=== PATIENT | female | born 2005 | race Caucasian/White ===

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

== ENCOUNTER 2024-01-13 23:23 | Emergency (ER) | payer OTHER ==
[2024-01-14 00:43] LABS: Absolute Eosinophils 0.1 K/uL (0-0.5); Absolute Lymphocytes (CBC) 1.2 K/uL (0.7-4.9); Absolute Monocytes 0.7 K/uL (0.1-1.3); Absolute Neutrophil 8.1 K/uL (1.8-8.0); Basophils % 0.2 % (0-1.3); Eosinophils % 0.9 % (0-4.4); Hematocrit 39.2 % (36.0-45.0); Hemoglobin 12.4 g/dL (12.0-15.0); Lymphocytes % 11.7 % (15.3-44.8); MCH 24.7 pg (27.0-35.0); MCHC 31.6 g/dL (32.0-36.0); MCV 78.2 fL (80-100); MPV 8.7 fL (7.6-11.3); Monocytes % 7.3 % (3.3-12.3); Neutrophils % 79.9 % (41.7-73.7); Platelets 258 thou/uL (152-406); RBC Red Blood Cell Count 5.02 M/uL (3.86-4.86)
[2024-01-14] MEDS ORDERED: FAMOTIDINE 20 MG/2 ML VIAL IV ONE (00:52)
[2024-01-14] MEDS ORDERED: ONDANSETRON 4 MG/2 ML VIAL ONE ×2 (00:52→03:32)
[2024-01-14] MEDS ORDERED: KETOROLAC 30 MG/ML INJ ONE (00:52)
[2024-01-14] MEDS ORDERED: NA CHLORIDE 0.9% 1,000 ML ONE (00:53)
[2024-01-14 01:02] LABS: Albumin 4.3 g/dL (3.4-5.0); Anion Gap 10.5 mEq/L (5.0-15.0); Bilirubin Total 0.6 mg/dL (0.2-1.0); Globulin 4.3 g/dL (2.3-3.5); Potassium 3.5 mEq/L (3.5-5.1); Protein, Total 8.6 g/dL (6.4-8.2)
[2024-01-14 01:32] LABS: Renal Epithelial <5 /HPF (None Seen); Sqamous Epithelial <5 /HPF (None Seen); Urine Bacteria <20 /HPF (<20); Urine Bilirubin NEGATIVE (Negative); Urine Blood Negative (Negative); Urine Clarity Turbid (Clear); Urine Color Yellow (Yellow); Urine Culture Reflex Order REFLEXED; Urine Glucose NEGATIVE (Negative); Urine Ketones TRACE (Negative); Urine Microscopic Reflex YN ORDER UMIC; Urine Mucus 2+ /HPF (None Seen); Urine Nitrite NEGATIVE (Negative); Urine Protein TRACE (Negative); Urine RBC <5 /HPF (None Seen); Urine Urobilinogen Normal (Normal); Urine WBC 20-50 /HPF (<5); Urine WBC Clump Rare /HPF (None Seen); Urine pH 5.5 (5.0-7.0)
--- NOTE | 2024-01-14 03:49 | RAD REPORT ---
EXAMINATION: CT ABDOMEN PELVIS WITH IV CONTRAST INDICATION: Female, 18 years old, ABD PAIN COMPARISON(S): 12/19/2020 TECHNIQUE: CT acquisition of the abdomen and pelvis following the administration of IV contrast. Pérez nal and sagittal reformatted images provided. This exam was performed according to departmental dose-optimization program which includes automated exposure control, adjustment of the mA and/or kV a ccording to patient size, and/or use of iterative reconstruction technique. FINDINGS: SUPPORT DEVICES: None. LOWER CHEST: Unremarkable. ABDOMEN AND PELVIS: Lack of intraperitoneal fat limits assessment. Liver: Length measures 19 cm. No focal lesion. Gallbladder and bile ducts: Unremarkable. Pancreas: Normal. Spleen: Mildly enlarged. Adrenal glands: Normal. Kidneys and ureters: Normal kidneys in visualized portions of the ureters. Bladder: Nondistended without evident abnormality. Reproductive organs: Unremarkable. GI tract: Normal caliber without wall thickening. No evidence of appendicitis. Liquid contents throug hout nearly all small bowel loops, and the large bowel from the cecum to the splenic flexure. Vessels: Unremarkable. Lymph nodes: No obvious adenopathy. Peritoneum: No evidence of ascites, fluid collection, or free air. Abdominal wall: No significant hernia. MUSCULOSKELETAL: No acute osseous abnormality. IMPRESSION: 1. CT appearance of large and small bowel loops can be seen in the setting of enteritis/enterocolit is. 2. Mild hepatosplenomegaly. Electronically signed by: Lionel Galvan MD 01/14/2024 03:45 AM CDT RP Due to temporary technical issues with the PACS/[employer]) reporting system, reports are being malika d by the in-house radiologist without review as a courtesy to ensure prompt reporting the interpreting radiologist is fully responsible for the content of the report. Transcribed Date/Time: 01/14/2024 3:49 AM
--- NOTE | 2024-01-14 03:54 | EDPHYS ---
Physician Documentation [facility] Name: Radha Bergman Age: 18 yrs Sex: Female : 2005 Arrival Date: 01/13/2024 Time: 23:23 Bed 17 Private MD: ED Physician Hari Cote HPI: 01/13 00:14 This 18 yrs old Female presents to ER via Unassigned with complaints of Abdominal Pain, sb4 Nausea, Epigastric Pain. 00:14 The patient presents with abdominal pain in the epigastric area. Onset: The sb4 symptoms/episode began/occurred 3 day(s) ago. The symptoms radiate to chest. Associated signs and symptoms: Pertinent positives: nausea. The symptoms are described as sharp, throbbing. Modifying factors: The symptoms are alleviated by nothing, the symptoms are aggravated by nothing. Severity of pain: in the emergency department the pain is a 8 / 10. The patient has not experienced similar symptoms in the past. The patient has not recently seen a physician. 01:52 nausea and diffuse abdominal pain that radiates up to chest for 2 days now since her sb4 boyfriend injured himself. no vomiting, no diarrhea, no fevers. 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 - Infectious Disease History:: Denies. - Social history:: Smoking status: Reported history of juuling and/or vaping. ROS: 00:14 Constitutional: Negative for fever, chills, and weight loss, sb4 00:14 Abdomen/GI: Positive for abdominal pain, nausea, 00:14 All other systems are negative, Exam: 00:14 Constitutional: This is a well developed, well nourished patient who is awake, alert, sb4 and in no acute distress. Head/Face: Normocephalic, atraumatic. Eyes: Extra-ocular motions intact. Periorbital areas with no swelling, redness, or edema. ENT: Mucous membranes moist. Cardiovascular: Regular rate and rhythm with a normal S1 and S2. Respiratory: Lungs have equal breath sounds bilaterally, clear to auscultation and percussion. No rales, rhonchi or wheezes noted. No increased work of breathing, no retractions or nasal flaring. Abdomen/GI: Soft, non-tender, no distension. Skin: Warm, dry with normal turgor. Normal color with no rashes, no lesions, and no evidence of cellulitis. MS/ Extremity: Pulses equal, no cyanosis. Neurovascular intact. Full, normal range of motion. Vital Signs: 00:07 BP 118 / 82; Pulse 105; Resp 16; Temp 98.2; Pulse Ox 100% on R/A; Weight 54.43 kg; vc1 Height 5 ft. 4 in. ; Pain 9/10; 01:30 BP 118 / 75; Pulse 88; Resp 16; Pulse Ox 100% ; Pain 3/10; dd2 02:21 BP 108 / 68; Pulse 78; Resp 15; Pulse Ox 99% ; dd2 04:14 BP 110 / 71; Pulse 81; Resp 15; Temp 98.2; Pulse Ox 97% ; dd2 00:07 Body Mass Index 20.60 (54.43 kg, 162.56 cm) vc1 00:07 Pain Scale: Adult vc1 01:30 Pain Scale: Adult dd2 [place] Coma Score: 00:55 Eye Response: spontaneous(4). Motor Response: obeys commands(6). Verbal Response: dd2 oriented(5). Total: 15. MDM: 01/12 23:28 Medical Screening Exam initiated sb4 01/13 01:41 Data reviewed: vital signs, nurses notes, lab test result(s), radiologic studies, and sb4 as a result, I will discharge patient. Counseling: I had a detailed discussion with the patient and/or guardian regarding the historical points, exam findings, and any diagnostic results supporting the discharge/admit diagnosis, lab results, radiology results, the need for outpatient follow up, for definitive care, to return to the emergency department if symptoms worsen or persist or if there are any questions or concerns that arise at home. 01/13 00:14 Order name: CBC with Diff; Complete Time: 00:54 sb4 01/13 00:14 Order name: CMP; Complete Time: 01:04 sb4 01/13 00:14 Order name: Lipase; Complete Time: 01:04 sb4 01/13 00:14 Order name: Test, Urine; Complete Time: 01:39 sb4 01/13 00:14 Order name: Urinalysis w/ reflexes; Complete Time: 01:39 sb4 01/13 01:35 Order name: Urine Culture EDWV 01/13 00:14 Order name: CT Abd/Pelvis - IV Contrast Only; Complete Time: 03:52 sb4 01/13 00:14 Order name: IV Saline Lock; Complete Time: 01:00 sb4 01/13 00:14 Order name: Labs collected and sent; Complete Time: 01:00 sb4 Administered Medications: 01:00 Drug: Famotidine IVP 20 mg IVP once; dilute with 10 mL 0.9% NaCl; give over 2 minutes dd2 Route: IVP; Site: left antecubital; 01:15 Follow up: Response: No adverse reaction dd2 01:15 Follow up: Response: No adverse reaction dd2 01:00 Drug: NS 0.9% IV 1000 ml IV at 1 bolus Per protocol; to be given as a bolus over 60 dd2 minutes Route: IV; Rate: 1 bolus; Site: left antecubital; 02:00 Follow up: Response: No adverse reaction; IV Status: Completed infusion; IV Intake: dd2 1000ml 01:01 Drug: TORadol - Ketorolac IVP 15 mg IVP once Route: IVP; Site: left antecubital; dd2 01:16 Follow up: Response: No adverse reaction dd2 01:01 Drug: Ondansetron IVP 4 mg IVP once; over 2 minutes Route: IVP; Site: left antecubital; dd2 01:16 Follow up: Response: No adverse reaction dd2 03:37 Drug: Ondansetron IVP 4 mg IVP once; over 2 minutes Route: IVP; Site: left antecubital; dd2 03:52 Follow up: Response: No adverse reaction dd2 04:33 Drug: Ciprofloxacin PO 250 mg PO once Route: PO; dd2 04:38 Follow up: Response: Medication administered at discharge. dd2 Disposition Summary: 01/14/24 03:53 Discharge Ordered Notes: Location: Home valerie Problem: new valerie Symptoms: have improved valerie Condition: Stable valerie Diagnosis - Upper abdominal pain, unspecified valerie - Nausea valerie - Other specified noninfective gastroenteritis and colitis valerie Followup: sb4 - With: Delta Doe DO - When: As needed - Reason: Recheck today's complaints, Re-evaluation by your physician Discharge Instructions: - Viral Gastroenteritis, Adult valerie - Discharge Summary Sheet sb4 - Abdominal Pain, Adult sb4 - Nausea, Adult sb4 - Urinary Tract Infection, Adult, [id number] sb4 Forms: - Medication Reconciliation Form valerie - Antibiotic Education valerie - Prescription Opioid Use valerie - Patient Portal Instructions [facility] - Leadership Thank You Letter [facility] Prescriptions: - Cipro 250 mg Oral tablet - take 1 tablet ORAL route every 12 hours; 14 tablet; Refills: 0, Product [facility] Selection Permitted - Pepcid 20 mg Oral Tablet - take 1 tablet ORAL route every 12 hours for 10 days; 20 tablet; Refills: 0, [facility] Product Selection Permitted - Zofran 4 mg Oral Tablet - take 1 tablet ORAL route every 12 hours As needed; 20 tablet; Refills: 0, sb4 Product Selection Permitted - dicyclomine 20 mg Oral tablet - take 1 tablet ORAL route every 6 hours As needed PRN abdominal pain; 20 tablet; sb4 Refills: 0, Product Selection Permitted Signatures: Dispatcher [employer] EDHari Arnold MD MD cha Calcote, Vanessa, RN RN vc1 Anisha Salcedo PAWilbertC PAWilbertC sb4 ROSA PUTNAM RN RN dd2 Corrections: (The following items were deleted from the chart) 00:14 00:14 CBC+H.LAB.BRZ ordered. EDMS EDMS 00:14 00:14 COMPREHENSIVE METABOLIC PANEL+C.LAB.BRZ ordered. EDMS EDMS 00:14 00:14 LIPASE+C.LAB.BRZ ordered. EDMS EDMS 00:14 00:14 Test, Urine+UC.LAB.BRZ ordered. EDMS EDMS 00:14 00:14 Urinalysis+U.LAB.BRZ ordered. EDMS EDMS 00:14 00:14 Abdomen Pelvis W Con+CT.RAD.BRZ ordered. EDMS EDMS
--- NOTE | 2024-01-14 03:54 | ER ---
Nurse's Notes [facility] Name: Radha Bergman Age: 18 yrs Sex: Female : 2005 Arrival Date: 01/13/2024 Time: 23:23 Bed 17 Private MD: Diagnosis: Upper abdominal pain, unspecified;Nausea;Other specified noninfective gastroenteritis and colitis Presentation: 01/13 00:07 Chief complaint: Patient states: abdominal pain and nausea. vc1 00:07 Coronavirus screen: Client denies travel out of the [place] in the last 14 days. At this vc1 time, the client does not indicate any symptoms associated with coronavirus-19. Ebola Screen: Patient negative for fever greater than or equal to 101.5 degrees Fahrenheit, and additional compatible Ebola Virus Disease symptoms Patient denies exposure to infectious person. Patient denies travel to an Ebola-affected area in the 21 days before illness onset. No symptoms or risks identified at this time. Initial Sepsis Screen: Does the patient meet any 2 criteria? No. Patient's initial sepsis screen is negative. Does the patient have a suspected source of infection? No. Patient's initial sepsis screen is negative. Risk Assessment: Do you want to hurt yourself or someone else? Patient reports no desire to harm self or others. Onset of symptoms was January 14, 2024. 00:07 Method Of Arrival: Ambulatory vc1 00:07 Acuity: ANIL 3 vc1 Triage Assessment: 01:11 General: Appears in no apparent distress. uncomfortable, well groomed, well developed, vc1 Behavior is cooperative, anxious. Pain: Complains of pain in abdomen. Pain: Pain currently is 9 out of 10 on a pain scale. Also complains of nausea. EENT: No deficits noted. No signs and/or symptoms were reported regarding the EENT system. Neuro: Level of Consciousness is awake, alert, obeys commands, Oriented to person, place, time, situation, Appropriate for age. Cardiovascular: Capillary refill < 3 seconds Patient's skin is warm and dry. Respiratory: Airway is patent Respiratory effort is even, unlabored, Respiratory pattern is regular, symmetrical. GI: Abdomen is flat, Reports nausea, Patient currently denies vomiting. : No deficits noted. No signs and/or symptoms were reported regarding the genitourinary system. Derm: Skin is intact, is healthy with good turgor, Skin is dry, Skin is normal, Skin temperature is warm. Musculoskeletal: Circulation, motion, and sensation intact. Range of motion: intact in all extremities. 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 - Infectious Disease History:: Denies. - Social history:: Smoking status: Reported history of juuling and/or vaping. Screenin:07 [facility] ED Fall Risk Assessment (Adult) History of falling in the last 3 months, vc1 including since admission No falls in past 3 months (0 pts) Confusion or Disorientation No (0 pts) Intoxicated or Sedated No (0 pts) Impaired Gait No (0 pts) Mobility Assist Device Used No (0 pt) Altered Elimination No (0 pt) Score/Fall Risk Level 0 - 2 = Low Risk Oriented to surroundings, Maintained a safe environment, Educated pt \T\ family on fall prevention, incl call for assistance when getting out of bed. Abuse screen: Denies threats or abuse. Nutritional screening: No deficits noted. Tuberculosis screening: No symptoms or risk factors identified. Assessment: 00:55 General: Appears in no apparent distress. Behavior is calm, cooperative, appropriate dd2 for age. Pain: Complains of pain in right upper quadrant and left upper quadrant Pain currently is 7 out of 10 on a pain scale. Neuro: Level of Consciousness is awake, alert, obeys commands, Oriented to person, place, time, situation, Appropriate for age. Cardiovascular: No deficits noted. Reports. Respiratory: No deficits noted. Airway is patent Respiratory effort is even, unlabored, Respiratory pattern is regular, symmetrical. GI: Abdomen is flat, non-distended, Bowel sounds present X 4 quads. Abdomen is tender to palpation in right upper quadrant and left upper quadrant. : No signs and/or symptoms were reported regarding the genitourinary system. EENT: No deficits noted. No signs and/or symptoms were reported regarding the EENT system. Derm: No deficits noted. No signs and/or symptoms reported regarding the dermatologic system. Musculoskeletal: No deficits noted. No signs and/or symptoms reported regarding the musculoskeletal system. Vital Signs: 00:07 BP 118 / 82; Pulse 105; Resp 16; Temp 98.2; Pulse Ox 100% on R/A; Weight 54.43 kg; vc1 Height 5 ft. 4 in. ; Pain 9/10; 01:30 BP 118 / 75; Pulse 88; Resp 16; Pulse Ox 100% ; Pain 3/10; dd2 02:21 BP 108 / 68; Pulse 78; Resp 15; Pulse Ox 99% ; dd2 04:14 BP 110 / 71; Pulse 81; Resp 15; Temp 98.2; Pulse Ox 97% ; dd2 00:07 Body Mass Index 20.60 (54.43 kg, 162.56 cm) vc1 00:07 Pain Scale: Adult vc1 01:30 Pain Scale: Adult dd2 [place] Coma Score: 00:55 Eye Response: spontaneous(4). Motor Response: obeys commands(6). Verbal Response: dd2 oriented(5). Total: 15. ED Course: 01/12 23:26 Patient arrived in ED. jj6 23:26 Anisha Salcedo PA-C is PHCP. sb4 23:26 Hari Cote MD is Attending Physician. sb4 01/13 00:32 ROSA PUTNAM, FELISHA is Primary Nurse. dd2 00:43 Missed attempt(s): 22 gauge in right antecubital area. vk 00:43 Initial lab(s) drawn, by me, sent to lab. vk 00:43 CBC with Diff Sent. vk 00:43 CMP Sent. vk 00:48 No provider procedures requiring assistance completed. Inserted saline lock: 22 gauge dd2 in left antecubital area, using aseptic technique. Flushed with 10 mL NS. 00:55 Provided Education on: medications, labs, call light. Door closed. Noise minimized. dd2 Warm blanket given. Verbal reassurance given. 01:08 Triage completed. vc1 01:13 Arm band placed on. vc1 01:13 Patient has correct armband on for positive identification. Bed in low position. Call vc1 light in reach. Pulse ox on. NIBP on. 02:07 CT Abd/Pelvis - IV Contrast Only In Process Unspecified. EDMS 03:53 Delta Doe, DO is Referral Physician. valerie 04:38 IV discontinued, intact, bleeding controlled, No redness/swelling at site. Pressure dd2 dressing applied. Administered Medications: 01:00 Drug: Famotidine IVP 20 mg IVP once; dilute with 10 mL 0.9% NaCl; give over 2 minutes dd2 Route: IVP; Site: left antecubital; 01:15 Follow up: Response: No adverse reaction dd2 01:15 Follow up: Response: No adverse reaction dd2 01:00 Drug: NS 0.9% IV 1000 ml IV at 1 bolus Per protocol; to be given as a bolus over 60 dd2 minutes Route: IV; Rate: 1 bolus; Site: left antecubital; 02:00 Follow up: Response: No adverse reaction; IV Status: Completed infusion; IV Intake: dd2 1000ml 01:01 Drug: TORadol - Ketorolac IVP 15 mg IVP once Route: IVP; Site: left antecubital; dd2 01:16 Follow up: Response: No adverse reaction dd2 01:01 Drug: Ondansetron IVP 4 mg IVP once; over 2 minutes Route: IVP; Site: left antecubital; dd2 01:16 Follow up: Response: No adverse reaction dd2 03:37 Drug: Ondansetron IVP 4 mg IVP once; over 2 minutes Route: IVP; Site: left antecubital; dd2 03:52 Follow up: Response: No adverse reaction dd2 04:33 Drug: Ciprofloxacin PO 250 mg PO once Route: PO; dd2 04:38 Follow up: Response: Medication administered at discharge. dd2 Medication: 01:14 VIS not applicable for this client. vc1 Intake: 02:00 IV: 1000ml; Total: 1000ml. dd2 Outcome: 03:53 Discharge ordered by . valerie 04:38 Discharged to home ambulatory, dd2 04:38 Condition: stable 04:38 Discharge instructions given to patient, Instructed on discharge instructions, follow up and referral plans. medication usage, Demonstrated understanding of instructions, follow-up care, medications, Prescriptions given X 4, 04:39 Patient left the ED. dd2 Signatures: Dispatcher [employer] EDSD Hari Cote MD MD cha Jeffries, Jennifer jj6 Chandni Johnson RN RN vc1 Anisha Salcedo PA-C PA-C sb4 Poly Nice DIANA, RN RN dd2
[2024-01-14] MEDS ORDERED: CIPROFLOXACIN HCL 500 MG TAB ONE (04:23)
[2024-01-14 08:55] VITALS: TEMP 98.2
[2024-01-14 09:08] VITALS: BP 110/71; O2SAT 97
== END 2024-01-14 04:39 | disposition home or self-care (01) ==
LOC: ER 23:23
DX: K52.89 Other specified noninfective gastroenteritis and colitis (principal); R11.0 Nausea
CPT/HCPCS: 87088; 85025; 81001; 87086; 36415; 81025; 83690; 80053; 74177; Q9967; J2405 ×2; J7030; 87077; 87186; 96361; 96374; 96375; 99284

== ENCOUNTER 2024-07-26 13:48 | Emergency (ER) | payer OTHER, SELFPAY ==
[2024-07-26] MEDS ORDERED: NA CHLORIDE 0.9% 1,000 ML ONE (15:27)
[2024-07-26] MEDS ORDERED: ONDANSETRON 4 MG/2 ML VIAL ONE (15:27)
[2024-07-26 15:47] LABS: Absolute Lymphocytes (CBC) 1.9 K/uL (0.7-4.9); Absolute Monocytes 0.5 K/uL (0.1-1.3); Absolute Neutrophil 4.1 K/uL (1.8-8.0); Basophils % 0.6 % (0-1.3); Eosinophils % 0.6 % (0-4.4); Hemoglobin 11.2 g/dL (12.0-15.0); Lymphocytes % 28.6 % (15.3-44.8); MCH 25.5 pg (27.0-35.0); MCHC 32.9 g/dL (32.0-36.0); MCV 77.4 fL (80-100); MPV 8.1 fL (7.6-11.3); Neutrophils % 62.2 % (41.7-73.7); Nucleated Red Blood Cells % 0.1 % (0-0); Platelets 241 thou/uL (152-406); RBC Red Blood Cell Count 4.39 M/uL (3.86-4.86); Red Cell Distribution Width 16.5 % (12.1-15.2)
[2024-07-26 16:09] LABS: Albumin 3.9 g/dL (3.4-5.0); Anion Gap 7.7 mEq/L (5.0-15.0); Bilirubin Total 0.4 mg/dL (0.2-1.0); Globulin 3.8 g/dL (2.3-3.5); Potassium 3.7 mEq/L (3.5-5.1); Protein, Total 7.7 g/dL (6.4-8.2)
[2024-07-26 16:36] LABS: Specific Gravity 1.019 (1.005-1.030)
[2024-07-26 16:37] LABS: Specific Gravity 1.019 (1.005-1.030); Urine Bilirubin NEGATIVE (Negative); Urine Blood Negative (Negative); Urine Clarity Clear (Clear); Urine Color Light-Yellow (Yellow); Urine Glucose NEGATIVE (Negative); Urine Ketones NEGATIVE (Negative); Urine Microscopic Reflex YN NO UMIC; Urine Nitrite NEGATIVE (Negative); Urine Protein NEGATIVE (Negative); Urine Urobilinogen Normal (Normal)
--- NOTE | 2024-07-26 17:19 | EDPHYS ---
Physician Documentation [facility] Name: Radha Bergman Age: 18 yrs Sex: Female : 2005 Arrival Date: 07/26/2024 Time: 13:48 Bed DX1 Private MD: ED Physician Hari Cote HPI: 07/26 15:02 This 18 yrs old Female presents to ER via Ambulatory with complaints of Weakness, kb Possible Dehydration. 15:02 Patient is a 18-year-old female who presents for dehydration. States that she was at [employer] work yesterday and they sent her home for dizziness and told her she was dehydrated. Patient reports nausea and diarrhea for 2 days with vomiting yesterday only. Denies dizziness at this time. Denies abdominal pain. Denies fever. 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 - Infectious Disease History:: Denies. - Social history:: Smoking status: Reported history of juuling and/or vaping. ROS: 15:02 Constitutional: As per HPI kb Exam: 15:03 Constitutional: This is a well developed, well nourished patient who is awake, alert, kb and in no acute distress. Head/Face: Normocephalic, atraumatic. ENT: Moist Mucous membranes Respiratory: Respirations even and unlabored. No increased work of breathing. Talking in full sentences Abdomen/GI: Soft, non-tender. No distention Skin: Warm, dry with normal turgor. Normal color. MS/ Extremity: Pulses equal, no cyanosis. Neurovascular intact. Full, normal range of motion. Neuro: Awake and alert, GCS 15, oriented to person, place, time, and situation. 15:03 Cardiovascular: Rate: tachycardic, Vital Signs: 14:16 BP 122 / 85; Pulse 104; Resp 18; Temp 98.4; Pulse Ox 96% ; Weight 58.97 kg; Height 5 me1 ft. 4 in. ; Pain 0/10; 14:16 Body Mass Index 22.31 (58.97 kg, 162.56 cm) me1 14:16 Pain Scale: Adult me1 MDM: 13:53 Medical Screening Exam initiated kb 15:03 Data reviewed: vital signs, nurses notes. kb 17:17 Test considered but Not performed: CT: ct abd considered but pt has no abd pain or kb tenderness. Counseling: I had a detailed discussion with the patient and/or guardian regarding the historical points, exam findings, and any diagnostic results supporting the discharge/admit diagnosis, lab results, the need for outpatient follow up, a family practitioner, to return to the emergency department if symptoms worsen or persist or if there are any questions or concerns that arise at home. 07/26 14:17 Order name: CBC with Diff; Complete Time: 15:52 kb 07/26 14:17 Order name: CMP; Complete Time: 16:11 kb 07/26 14:17 Order name: Lipase; Complete Time: 16:11 kb 07/26 14:17 Order name: Test, Urine; Complete Time: 16:39 kb 07/26 14:17 Order name: Urinalysis w/ reflexes; Complete Time: 16:38 kb 07/26 14:17 Order name: CPK; Complete Time: 16:11 kb 07/26 14:17 Order name: IV Saline Lock; Complete Time: 15:40 kb 07/26 14:17 Order name: Labs collected and sent; Complete Time: 15:40 kb Administered Medications: 15:42 Drug: Ondansetron IVP 4 mg IVP once; over 2 minutes Route: IVP; Site: right antecubital;ld1 17:37 Follow up: Response: No adverse reaction; Nausea is decreased ss 15:42 Drug: NS 0.9% IV 1000 ml IV at 1 bolus Per protocol; to be given as a bolus over 60 ld1 minutes Route: IV; Rate: 1 bolus; Site: right antecubital; 17:37 Follow up: IV Intake: 1000ml ss 17:37 Follow up: IV Status: Completed infusion ss Disposition Summary: 07/26/24 17:18 Discharge Ordered Notes: Location: Home kb Condition: Stable kb Diagnosis - Diarrhea, unspecified kb - Nausea with vomiting, unspecified kb Followup: kb - With: Emergency Department - When: As needed - Reason: Worsening of condition Followup: kb - With: Private Physician - When: 2 - 3 days - Reason: Recheck today's complaints, Continuance of care, Re-evaluation by your physician Discharge Instructions: - Discharge Summary Sheet kb - Nausea and Vomiting, Adult, [id number] kb - Diarrhea, Adult, [id number] kb Forms: - Work release form kb - Medication Reconciliation Form kb - Antibiotic Education kb - Prescription Opioid Use kb - Patient Portal Instructions kb - Leadership Thank You Letter kb Prescriptions: - Zofran 4 mg Oral tablet - take 1 tablet ORAL route every 6 hours As needed; 12 tablet; Refills: 0, kb Product Selection Permitted Signatures: Dispatcher [employer] EDMS Rosemary Villarreal, MELINA-C MECHANICAL TECHNOLOGIST-Sarah Mancini RN RN ld1 Aury Kirkland RN RN me1 Luz Maria Carvalho RN ss Corrections: (The following items were deleted from the chart) 14:17 14:17 CBC+H.LAB.BRZ ordered. EDWI EDMS 14:17 14:17 COMPREHENSIVE METABOLIC PANEL+C.LAB.BRZ ordered. EDWI EDMS 14:17 14:17 LIPASE+C.LAB.BRZ ordered. EDWI EDMS 14:17 14:17 Test, Urine+UC.LAB.BRZ ordered. EDWI EDMS 14:17 14:17 Urinalysis+U.LAB.BRZ ordered. EDWI EDMS 14:17 14:17 CREATINE PHOSPHOKINASE+C.LAB.BRZ ordered. EDWI EDMS 15:03 15:02 Patient is a 18-year-old female who presents for dehydration. States that she was kb at work yesterday and they sent her home for dizziness and told her she was dehydrated. Patient reports nausea and diarrhea for 2 days with vomiting yesterday only. Denies dizziness at this time. Denies abdominal pain. Denies fever.. kb
--- NOTE | 2024-07-26 17:19 | ER ---
Nurse's Notes [facility] Name: Radha Bergman Age: 18 yrs Sex: Female : 2005 Arrival Date: 07/26/2024 Time: 13:48 Bed DX1 Private MD: Diagnosis: Diarrhea, unspecified;Nausea with vomiting, unspecified Presentation: 07/26 14:16 Chief complaint: Patient states: generalized weakness w/nausea today. 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 Concerned about dehydration. Coronavirus screen: Vaccine status: Patient reports receiving the 2nd dose of the covid vaccine. Ebola Screen: No symptoms or risks identified at this time. Initial Sepsis Screen: Does the patient meet any 2 criteria? No. Patient's initial sepsis screen is negative. Does the patient have a suspected source of infection? No. Patient's initial sepsis screen is negative. Risk Assessment: Do you want to hurt yourself or someone else? Patient reports no desire to harm self or others. Onset of symptoms was July 25, 2024. 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 - Infectious Disease History:: Denies. - Social history:: Smoking status: Reported history of juuling and/or vaping. Screenin:35 Abuse screen: Denies threats or abuse. Denies injuries from another. Nutritional ss screening: No deficits noted. Tuberculosis screening: Never had TB. Assessment: 17:35 General: Appears in no apparent distress. comfortable, Behavior is calm, cooperative. ss Neuro: Level of Consciousness is awake, alert, obeys commands, Oriented to person, place, time, situation. Respiratory: Airway is patent Respiratory effort is even, unlabored, Respiratory pattern is regular, symmetrical. Derm: Skin is intact, is healthy with good turgor, Skin is pink, warm \T\ dry. normal. Vital Signs: 14:16 BP 122 / 85; Pulse 104; Resp 18; Temp 98.4; Pulse Ox 96% ; Weight 58.97 kg; Height 5 me1 ft. 4 in. ; Pain 0/10; 14:16 Body Mass Index 22.31 (58.97 kg, 162.56 cm) me1 14:16 Pain Scale: Adult ne1 ED Course: 13:52 Patient arrived in ED. cj3 13:53 [facility] kb 13:53 Hari Cote MD is Attending Physician. kb 14:18 Triage completed. me1 14:18 Arm band placed on Patient placed in waiting room. me1 15:40 CBC with Diff Sent. cc6 15:40 CMP Sent. cc6 15:40 Lipase Sent. cc6 15:40 Test, Urine Sent. cc6 15:40 Urinalysis w/ reflexes Sent. cc6 15:40 Initial lab(s) drawn, by ne, sent to lab. Inserted saline lock: 22 gauge in right cc6 antecubital area, using aseptic technique. Blood collected. Flushed with 10 mL NS. 16:27 Urine collected: clean catch specimen, cloudy, johnson colored. me1 17:35 Luz Maria Carvalho, RN is Primary Nurse. ss 17:35 Patient has correct armband on for positive identification. ss 17:38 No provider procedures requiring assistance completed. IV discontinued, intact, ss bleeding controlled, No redness/swelling at site. Pressure dressing applied. Administered Medications: 15:42 Drug: Ondansetron IVP 4 mg IVP once; over 2 minutes Route: IVP; Site: right antecubital;ld1 17:37 Follow up: Response: No adverse reaction; Nausea is decreased ss 15:42 Drug: NS 0.9% IV 1000 ml IV at 1 bolus Per protocol; to be given as a bolus over 60 ld1 minutes Route: IV; Rate: 1 bolus; Site: right antecubital; 17:37 Follow up: IV Intake: 1000ml ss 17:37 Follow up: IV Status: Completed infusion ss Medication: 17:35 VIS not applicable for this client. ss Intake: 17:37 IV: 1000ml; Total: 1000ml. ss Outcome: 17:18 Discharge ordered by . kb 17:35 Discharged to home ambulatory, ss 17:35 Condition: improved 17:35 Discharge instructions given to patient, Instructed on discharge instructions, follow up and referral plans. medication usage, Demonstrated understanding of instructions, follow-up care, medications, Prescriptions given X 1, 17:37 Patient left the ED. Signatures: Rosemary Villarreal, CHUCK SUMMERS-Luz Maria Nolasco, RN RN ss Sarah Mcmahon RN RN ld1 Aury Kirkland RN RN me1 Peyton Gee cc6 Lucita Jensen 3
[2024-07-28 06:32] VITALS: BP 122/85; TEMP 98.4; O2SAT 96
== END 2024-07-26 17:37 | disposition home or self-care (01) ==
LOC: ER 13:48
DX: R19.7 Diarrhea, unspecified (principal); R11.2 Nausea with vomiting, unspecified
CPT/HCPCS: 36415; 80053; 81003; 81025; 82550; 83690; 85025; 96361; 96374; 99284; J2405; J7030